=== PATIENT | male | born 1940 | race Caucasian/White ===

== ENCOUNTER 2021-08-28 13:21 | Inpatient (IN) ==
[2021-08-28 14:25] LABS: ABG Base Excess -0.5 MMOL/L (-2.5-2.5); ABG HCO3 23.9 MMOL/L (20-26); ABG Oxygen Saturation 90.8 % (95-100); ABG PCO2 39.4 MM HG (35-48); ABG PH 7.396 (7.35-7.45); ABG PO2 61.9 MM HG (80-95); ABG TCO2 22.6 MMOL/L (23-27)
[2021-08-28 14:45] LABS: Albumin 3.7 G/DL (3.4-5.0); Bilirubin,Total 0.9 MG/DL (0.20-1.00); Calcium 9.1 MG/DL (8.5-10.1); Osmolality,Calculated 283.7 MOS/KG (273-304); Potassium 3.5 MMOL/L (3.5-5.1); Total Protein 7.6 G/DL (6.4-8.2)
[2021-08-28 14:50] LABS: Basophils % 0.7 % (0.0-0.8); Eosinophils # 0.1 10*3/uL (0.0-0.87); Eosinophils % 1.3 % (0.00-10.9); Hematocrit 30.8 VOL% (42.0-52.0); Hemoglobin 8.5 GM/DL (14.0-18.0); Immature Granulocytes Absolute 0.06 #; Lymphocytes # 0.7 10*3/uL (1.4-4.0); Lymphocytes % 12.2 % (21.2-54.2); Mean Corpuscular HGB Conc 27.6 GM/DL (32-36); Mean Corpuscular Volume 73.3 FL (87-102); Mean Platelet Volume 10.6 FL (9.6-12.0); Monocytes % 9.8 % (1.7-12.7); Platelet Count 196 T/CUMM (130-400); Red Cell Distribution Width 18.3 % (9.3-17.3); White Blood Count 6.1 T/CUMM (4-12)
[2021-08-28] MEDS ORDERED: cefTRIAXone 1,000 MG in SODIUM CHLORIDE 0.9% 100 ML IV STA (14:51)
[2021-08-28] MEDS ORDERED: AZITHROMYCIN INJ 500 MG in SODIUM CHLORIDE 0.9% 250 ML IV STA (14:52)
[2021-08-28] MEDS ORDERED: ASPIRIN 325 MG TABLET PO STA (15:00)
[2021-08-28] MEDS ORDERED: ENOXAPARIN 30 MG/0.3 ML SYRINGE SUBCUT STA (15:01)
[2021-08-28 15:14] LABS: Anisocytosis 2+; Hypochromia 1+; Macrocytosis Slight; Microcytosis 2+
[2021-08-28 15:15] LABS: Platelet Estimate Normal; Polychromasia Few
[2021-08-28] MEDS ORDERED: ENOXAPARIN 100 MG/ML SYRINGE SUBCUT ONE (15:17)
[2021-08-28] MEDS ORDERED: GLUCAGON 1 MG VIAL IM PRN (15:37)
[2021-08-28] MEDS ORDERED: ONDANSETRON 4 MG/2 ML VIAL IV PRN (15:37)
[2021-08-28] MEDS ORDERED: ACETAMINOPHEN 325 MG TABLET PO PRN (15:37)
[2021-08-28] MEDS ORDERED: DEXTROSE 10% 250 ML BAG IV PRN (15:37)
[2021-08-28] MEDS ORDERED: NITROGLYCERIN SL 0.4 MG TABLET SL PRN (16:00)
[2021-08-28 16:12] LABS: % Iron Saturation 3.7 % (18-50)
[2021-08-28 16:20] LABS: Folate 11.45 NG/ML (5.38-24.0)
[2021-08-28] MEDS ORDERED: ALUMINUM/MAGNES/SIMETH MAX STR 30 ML UDCUP PO PRN (16:21)
[2021-08-28] MEDS ORDERED: ALBUTEROL/IPRATROPIUM 3 ML NEB RESP TX SCH (16:30)
[2021-08-28] MEDS: ALBUTEROL/IPRATROPIUM 3 ML NEB RESP TX SCH (19:43)
[2021-08-28] MEDS: EZETIMIBE 10 MG TABLET PO SCH (20:33)
[2021-08-28] MEDS: METOPROLOL TARTRATE 50 MG TABLET PO SCH (20:33)
[2021-08-28] MEDS: FENOFIBRATE 145 MG TABLET PO SCH (20:33)
[2021-08-29] MEDS: ALBUTEROL/IPRATROPIUM 3 ML NEB RESP TX SCH ×4 (00:02→19:35)
[2021-08-29 05:44] LABS: Albumin 3.1 G/DL (3.4-5.0); Bilirubin,Total 0.8 MG/DL (0.20-1.00); Osmolality,Calculated 281.7 MOS/KG (273-304); Potassium 3.7 MMOL/L (3.5-5.1); Risk Ratio 5.1; Thyroid Stimulating Hormone 2.22 uIU/ml (0.358-3.74); VLDL Cholesterol 34.8 MG/DL
[2021-08-29 06:49] LABS: Basophils # 0.1 10*3/uL (0.0-0.2); Basophils % 0.9 % (0.0-0.8); Eosinophils # 0.1 10*3/uL (0.0-0.87); Eosinophils % 0.9 % (0.00-10.9); Hematocrit 27.6 VOL% (42.0-52.0); Hemoglobin 7.7 GM/DL (14.0-18.0); Immature Granulocytes % 0.7 %; Immature Granulocytes Absolute 0.04 #; Lymphocytes # 0.7 10*3/uL (1.4-4.0); Lymphocytes % 13.2 % (21.2-54.2); Mean Corpuscular HGB Conc 27.9 GM/DL (32-36); Monocytes % 9.7 % (1.7-12.7); Neutrophils % 74.6 % (38.7-73.9); Platelet Count 174 T/CUMM (130-400); Red Blood Count 3.78 MC/CUMM (3.8-5.5); Red Cell Distribution Width 18.2 % (9.3-17.3); White Blood Count 5.4 T/CUMM (4-12)
[2021-08-29 07:16] LABS: Hypochromia 2+; Microcytosis 1+; Ovalocytes Few; Platelet Estimate Adequate; Polychromasia Slight
[2021-08-29] MEDS ORDERED: ASPIRIN EC 81 MG TABLET PO SCH (09:00)
[2021-08-29] MEDS: METOPROLOL TARTRATE 50 MG TABLET PO SCH ×2 (09:19→20:49)
[2021-08-29] MEDS: CLOPIDOGREL 75 MG TABLET PO SCH (09:19)
[2021-08-29] MEDS: FERROUS SULFATE 325 MG TABLET PO SCH ×2 (09:21→20:49)
[2021-08-29] MEDS ORDERED: SODIUM CHLORIDE 0.45% 1,000 ML IV SCH (09:30)
[2021-08-29 09:55] LABS: Hematocrit 31.7 VOL% (42.0-52.0); Hemoglobin 8.5 GM/DL (14.0-18.0)
[2021-08-29] MEDS ORDERED: LIDOCAINE 1% 20 ML VIAL ONE (09:58)
[2021-08-29] MEDS ORDERED: HEPARIN/NACL 0.9% 2 UNITS/ML 3,000 UNIT/1,500 ML BAG IV ONE (09:58)
[2021-08-29] MEDS ORDERED: fentaNYL 100 MCG/2 ML VIAL ONE (10:24)
[2021-08-29] MEDS ORDERED: HEPARIN 5,000 UNIT/1 ML VIAL ONE ×2 (10:24→11:00)
[2021-08-29] MEDS ORDERED: MIDAZOLAM 2 MG/2 ML VIAL ONE (10:24)
[2021-08-29] MEDS ORDERED: NITROGLYCERIN DRIP 0 MG/0 ML BOTTLE IV ONE (10:24)
[2021-08-29] MEDS ORDERED: FUROSEMIDE 40 MG/4 ML VIAL ONE ×2 (10:51→11:00)
[2021-08-29] MEDS: cefTRIAXone 1,000 MG in SODIUM CHLORIDE 0.9% 100 ML IV SCH (12:15)
[2021-08-29] MEDS: PANTOPRAZOLE 40 MG TABLET PO SCH (12:33)
[2021-08-29] MEDS: ENOXAPARIN 100 MG/ML SYRINGE SUBCUT SCH ×2 (12:33→20:49)
[2021-08-29] MEDS: AZITHROMYCIN INJ 250 MG in SODIUM CHLORIDE 0.9% 250 ML IV SCH (16:23)
[2021-08-29] MEDS: EZETIMIBE 10 MG TABLET PO SCH (20:48)
[2021-08-29] MEDS: ISOSORBIDE MONONITRATE 30 MG TABLET PO SCH (20:49)
[2021-08-29] MEDS: FENOFIBRATE 145 MG TABLET PO SCH (20:49)
[2021-08-30] MEDS: ALBUTEROL/IPRATROPIUM 3 ML NEB RESP TX SCH ×4 (00:06→19:39)
[2021-08-30] MEDS ORDERED: LORazepam 2 MG/1 ML VIAL IV ONE (02:09)
[2021-08-30 06:02] LABS: Calcium 8.2 MG/DL (8.5-10.1); Osmolality,Calculated 287.3 MOS/KG (273-304); Potassium 3.5 MMOL/L (3.5-5.1)
[2021-08-30] MEDS ORDERED: MAGNESIUM SULF RIDER 2 GM/50 ML PREMIX IV ONE (07:45)
[2021-08-30] MEDS ORDERED: ASPIRIN EC 325 MG TABLET PO SCH (09:00)
[2021-08-30 09:15] LABS: ABG Base Excess 2.3 MMOL/L (-2.5-2.5); ABG HCO3 26.4 MMOL/L (20-26); ABG Oxygen Saturation 89.2 % (95-100); ABG PCO2 49.7 MM HG (35-48); ABG PH 7.362 (7.35-7.45); ABG TCO2 26.5 MMOL/L (23-27)
[2021-08-30] MEDS: cefTRIAXone 1,000 MG in SODIUM CHLORIDE 0.9% 100 ML IV SCH (09:27)
[2021-08-30] MEDS: ISOSORBIDE MONONITRATE 30 MG TABLET PO SCH (09:28)
[2021-08-30] MEDS: ASPIRIN EC 81 MG TABLET PO SCH (09:28)
[2021-08-30] MEDS: METOPROLOL TARTRATE 50 MG TABLET PO SCH ×2 (09:28→20:49)
[2021-08-30] MEDS: CLOPIDOGREL 75 MG TABLET PO SCH (09:28)
[2021-08-30] MEDS: ENOXAPARIN 100 MG/ML SYRINGE SUBCUT SCH ×2 (09:28→20:49)
[2021-08-30] MEDS: FERROUS SULFATE 325 MG TABLET PO SCH ×2 (09:29→20:49)
[2021-08-30] MEDS: PANTOPRAZOLE 40 MG TABLET PO SCH (09:29)
[2021-08-30 10:56] LABS: Basophils # 0.1 # (0.0-0.1); Basophils % 0.7 % (0.2-1.0); Eosinophils % 0.3 % (0.0-10.0); Hematocrit 25.8 VOL% (42.0-52.0); Hemoglobin 7.2 GM/DL (14.0-18.0); Lymphocytes # 0.6 # (1.3-2.9); Lymphocytes % 7.6 % (20.5-45.5); Mean Corpuscular HGB Conc 27.9 GM/DL (32-36); Mean Corpuscular Volume 73.1 FL (80-94); Mean Platelet Volume 11.3 FL (7.4-10.4); Monocytes % 10.2 % (5.5-11.7); Neutrophils % 80.9 % (43.0-65.0); Platelet Count 176 T/CUMM (130-400); Red Blood Count 3.53 MC/CUMM (4.70-6.10); Red Cell Distribution Width 18.2 % (11.5-15.5); White Blood Count 7.3 T/CUMM (4.8-10.8)
[2021-08-30] MEDS: FUROSEMIDE 40 MG/4 ML VIAL IV SCH ×2 (12:03→16:18)
[2021-08-30] MEDS: AZITHROMYCIN INJ 250 MG in SODIUM CHLORIDE 0.9% 250 ML IV SCH (12:42)
[2021-08-30 16:48] LABS: Bacteria,Urine Occasional /HPF (Few); Bilirubin,Urine Negative (Negative); Blood, Urine Large mg/dL (Negative); Calcium Oxalate Crystals,Urine Occasional /HPF (Few); Glucose,Urine (UA) Negative (Negative); Ketones,Urine Negative (Negative); Mucus,Urine Occasional /LPF (Occasional); Nitrite,Urine Negative (Negative); Protein,Urine 100 MG/DL; RBC,Urine 66 /HPF (0-4); Uric Acid Crystals,Urine Occasional /HPF (<1); Urine Appearance CLOUDY (Clear); Urine Color Yellow (Yellow); Urine Specific Gravity 1.025 (1.001-1.035); Urine Urobilinogen < 2.0 EU/DL (<2.0)
[2021-08-30] MEDS: EZETIMIBE 10 MG TABLET PO SCH (20:49)
[2021-08-30] MEDS: FENOFIBRATE 145 MG TABLET PO SCH (20:49)
[2021-08-31] MEDS: ALBUTEROL/IPRATROPIUM 3 ML NEB RESP TX SCH ×4 (00:10→19:28)
[2021-08-31 06:00] LABS: Potassium 3.9 MMOL/L (3.5-5.1)
[2021-08-31 07:30] LABS: Basophils # 0.1 10*3/uL (0.0-0.2); Basophils % 0.8 % (0.0-0.8); Eosinophils # 0.1 10*3/uL (0.0-0.87); Eosinophils % 0.8 % (0.00-10.9); Hemoglobin 8.4 GM/DL (14.0-18.0); Immature Granulocytes % 0.7 %; Immature Granulocytes Absolute 0.06 #; Lymphocytes # 0.9 10*3/uL (1.4-4.0); Lymphocytes % 10.1 % (21.2-54.2); Mean Corpuscular HGB Conc 26.9 GM/DL (32-36); Mean Platelet Volume 11.1 FL (9.6-12.0); Monocytes % 7.5 % (1.7-12.7); NRBC # 0.02 10*3/uL; Neutrophils % 80.1 % (38.7-73.9); Platelet Count 180 T/CUMM (130-400); Red Blood Count 4.16 MC/CUMM (3.8-5.5); Red Cell Distribution Width 18.5 % (9.3-17.3); White Blood Count 8.8 T/CUMM (4-12)
[2021-08-31 07:31] LABS: Hematocrit 31.2 VOL% (42.0-52.0)
[2021-08-31 07:32] LABS: Anisocytosis 1+; Hypochromia 1+; Microcytosis 1+; Ovalocytes Slight; Platelet Estimate Adequate; Tear Drop Cells Slight
[2021-08-31] MEDS: FERROUS SULFATE 325 MG TABLET PO SCH ×3 (08:38→21:38)
[2021-08-31] MEDS: ISOSORBIDE MONONITRATE 30 MG TABLET PO SCH (08:38)
[2021-08-31] MEDS: ASPIRIN EC 81 MG TABLET PO SCH (08:38)
[2021-08-31] MEDS: METOPROLOL TARTRATE 50 MG TABLET PO SCH ×3 (08:38→21:37)
[2021-08-31] MEDS: cefTRIAXone 1,000 MG in SODIUM CHLORIDE 0.9% 100 ML IV SCH (08:38)
[2021-08-31] MEDS: CLOPIDOGREL 75 MG TABLET PO SCH (08:38)
[2021-08-31] MEDS: PANTOPRAZOLE 40 MG TABLET PO SCH (08:38)
[2021-08-31] MEDS: FUROSEMIDE 40 MG/4 ML VIAL IV SCH ×2 (08:39→16:43)
[2021-08-31] MEDS: ENOXAPARIN 100 MG/ML SYRINGE SUBCUT SCH ×2 (09:11→21:06)
[2021-08-31] MEDS: AZITHROMYCIN INJ 250 MG in SODIUM CHLORIDE 0.9% 250 ML IV SCH (09:11)
[2021-08-31] MEDS: QUEtiapine 25 MG TABLET PO SCH (18:11)
[2021-08-31] MEDS ORDERED: HALOPERIDOL 5 MG/ML AMP IM ONE (20:56)
[2021-08-31] MEDS: FENOFIBRATE 145 MG TABLET PO SCH ×2 (21:06→21:37)
[2021-08-31] MEDS: EZETIMIBE 10 MG TABLET PO SCH ×2 (21:06→21:37)
[2021-09-01] MEDS: ALBUTEROL/IPRATROPIUM 3 ML NEB RESP TX SCH ×4 (00:44→19:01)
[2021-09-01 06:05] LABS: White Blood Count 7.6 T/CUMM (4-12)
[2021-09-01 06:06] LABS: Basophils # 0.1 10*3/uL (0.0-0.2); Basophils % 0.7 % (0.0-0.8); Eosinophils % 0.5 % (0.00-10.9); Hemoglobin 8.2 GM/DL (14.0-18.0); Immature Granulocytes % 0.8 %; Immature Granulocytes Absolute 0.06 #; Lymphocytes # 0.8 10*3/uL (1.4-4.0); Lymphocytes % 10.6 % (21.2-54.2); Mean Corpuscular HGB Conc 27.3 GM/DL (32-36); Mean Corpuscular Volume 74.1 FL (87-102); Mean Platelet Volume 11.3 FL (9.6-12.0); Monocytes % 7.9 % (1.7-12.7); NRBC # 0.02 10*3/uL; Neutrophils % 79.5 % (38.7-73.9); Platelet Count 207 T/CUMM (130-400); Red Blood Count 4.05 MC/CUMM (3.8-5.5); Red Cell Distribution Width 18.6 % (9.3-17.3)
[2021-09-01 06:51] LABS: Osmolality,Calculated 286.4 MOS/KG (273-304)
[2021-09-01] MEDS ORDERED: diphenhydrAMINE CAP 25 MG CAPSULE PO ONE (07:00)
[2021-09-01] MEDS ORDERED: DIAZEPAM 5 MG TABLET PO ONE (07:00)
[2021-09-01] MEDS ORDERED: POTASSIUM CHLORIDE 20 MEQ TABLET PO ONE (09:26)
[2021-09-01] MEDS ORDERED: ENOXAPARIN 40 MG/0.4 ML SYRINGE SUBCUT SCH (09:26)
[2021-09-01] MEDS: ISOSORBIDE MONONITRATE 30 MG TABLET PO SCH (09:53)
[2021-09-01] MEDS: FERROUS SULFATE 325 MG TABLET PO SCH ×2 (09:53→21:08)
[2021-09-01] MEDS: ASPIRIN EC 81 MG TABLET PO SCH (09:54)
[2021-09-01] MEDS: CLOPIDOGREL 75 MG TABLET PO SCH (09:54)
[2021-09-01] MEDS: PANTOPRAZOLE 40 MG TABLET PO SCH (09:54)
[2021-09-01] MEDS: QUEtiapine 25 MG TABLET PO SCH (09:54)
[2021-09-01] MEDS: METOPROLOL TARTRATE 50 MG TABLET PO SCH ×2 (09:55→21:08)
[2021-09-01] MEDS: cefTRIAXone 1,000 MG in SODIUM CHLORIDE 0.9% 100 ML IV SCH (09:55)
[2021-09-01] MEDS ORDERED: FUROSEMIDE 40 MG/4 ML VIAL IV SCH (10:00)
[2021-09-01] MEDS: AZITHROMYCIN INJ 250 MG in SODIUM CHLORIDE 0.9% 250 ML IV SCH (10:50)
[2021-09-01] MEDS: FUROSEMIDE 40 MG/4 ML VIAL IV SCH ×3 (10:55→19:53)
[2021-09-01] MEDS: ENOXAPARIN 40 MG/0.4 ML SYRINGE SUBCUT SCH (10:55)
[2021-09-01] MEDS: ENOXAPARIN 100 MG/ML SYRINGE SUBCUT SCH (11:07)
[2021-09-01] MEDS ORDERED: POTASSIUM CHLORIDE 20 MEQ TABLET PO PRN (14:45)
[2021-09-01] MEDS: HALOPERIDOL 5 MG TABLET PO SCH (19:53)
[2021-09-01] MEDS: EZETIMIBE 10 MG TABLET PO SCH (21:08)
[2021-09-01] MEDS: MEMANTINE 5 MG TABLET PO SCH (21:08)
[2021-09-01] MEDS: FENOFIBRATE 145 MG TABLET PO SCH (21:11)
[2021-09-02] MEDS: ALBUTEROL/IPRATROPIUM 3 ML NEB RESP TX SCH ×4 (01:39→20:30)
[2021-09-02 05:21] LABS: Calcium 8.6 MG/DL (8.5-10.1); Osmolality,Calculated 280.8 MOS/KG (273-304); Potassium 3.9 MMOL/L (3.5-5.1)
[2021-09-02 05:59] LABS: Basophils # 0.1 10*3/uL (0.0-0.2); Eosinophils # 0.1 10*3/uL (0.0-0.87); Eosinophils % 1.8 % (0.00-10.9); Hemoglobin 8.2 GM/DL (14.0-18.0); Immature Granulocytes % 0.7 %; Immature Granulocytes Absolute 0.05 #; Lymphocytes # 0.8 10*3/uL (1.4-4.0); Lymphocytes % 11.7 % (21.2-54.2); Mean Corpuscular HGB Conc 27.2 GM/DL (32-36); Mean Corpuscular Volume 74.9 FL (87-102); Mean Platelet Volume 11.8 FL (9.6-12.0); Monocytes % 7.3 % (1.7-12.7); Neutrophils % 77.5 % (38.7-73.9); Platelet Count 207 T/CUMM (130-400); Red Blood Count 4.02 MC/CUMM (3.8-5.5); Red Cell Distribution Width 18.7 % (9.3-17.3); White Blood Count 6.7 T/CUMM (4-12)
[2021-09-02 06:07] LABS: Hematocrit 30.1 VOL% (42.0-52.0)
[2021-09-02 06:49] LABS: Anisocytosis 1+; Hypochromia 1+; Microcytosis 1+; Ovalocytes Slight; Target Cells Slight
[2021-09-02 06:50] LABS: Platelet Estimate Normal
[2021-09-02] MEDS: FUROSEMIDE 40 MG/4 ML VIAL IV SCH ×2 (09:08→16:39)
[2021-09-02] MEDS: ASPIRIN EC 81 MG TABLET PO SCH (09:09)
[2021-09-02] MEDS: FERROUS SULFATE 325 MG TABLET PO SCH ×2 (09:09→20:41)
[2021-09-02] MEDS: HALOPERIDOL 5 MG TABLET PO SCH ×2 (09:09→18:44)
[2021-09-02] MEDS: METOPROLOL TARTRATE 50 MG TABLET PO SCH ×2 (09:09→20:41)
[2021-09-02] MEDS: PANTOPRAZOLE 40 MG TABLET PO SCH (09:09)
[2021-09-02] MEDS: ISOSORBIDE MONONITRATE 30 MG TABLET PO SCH (09:09)
[2021-09-02] MEDS: MEMANTINE 5 MG TABLET PO SCH ×2 (09:09→20:41)
[2021-09-02] MEDS: CLOPIDOGREL 75 MG TABLET PO SCH (09:09)
[2021-09-02] MEDS: cefTRIAXone 1,000 MG in SODIUM CHLORIDE 0.9% 100 ML IV SCH (09:10)
[2021-09-02] MEDS: ENOXAPARIN 40 MG/0.4 ML SYRINGE SUBCUT SCH (09:11)
[2021-09-02] MEDS: AZITHROMYCIN INJ 250 MG in SODIUM CHLORIDE 0.9% 250 ML IV SCH (10:14)
[2021-09-02] MEDS ORDERED: TUBERCULIN SKIN TEST 0.1 ML SYRINGE INTRADERM ONE (14:00)
[2021-09-02] MEDS ORDERED: HALOPERIDOL 5 MG TABLET PO SCH (18:00)
[2021-09-02] MEDS: EZETIMIBE 10 MG TABLET PO SCH (20:41)
[2021-09-02] MEDS: DOXYCYCLINE HYCLATE 100 MG CAPSULE PO SCH (20:41)
[2021-09-02] MEDS: FENOFIBRATE 145 MG TABLET PO SCH (20:41)
[2021-09-03] MEDS: ALBUTEROL/IPRATROPIUM 3 ML NEB RESP TX SCH ×4 (00:58→19:39)
[2021-09-03 05:56] LABS: Calcium 8.6 MG/DL (8.5-10.1); Potassium 3.4 MMOL/L (3.5-5.1)
[2021-09-03 06:09] LABS: Basophils # 0.1 10*3/uL (0.0-0.2); Eosinophils # 0.2 10*3/uL (0.0-0.87); Eosinophils % 3.1 % (0.00-10.9); Hemoglobin 8.5 GM/DL (14.0-18.0); Immature Granulocytes % 0.9 %; Immature Granulocytes Absolute 0.05 #; Lymphocytes # 0.8 10*3/uL (1.4-4.0); Lymphocytes % 13.8 % (21.2-54.2); Mean Corpuscular Volume 74.3 FL (87-102); Mean Platelet Volume 11.2 FL (9.6-12.0); Monocytes % 9.4 % (1.7-12.7); NRBC # 0.02 10*3/uL; Neutrophils % 71.8 % (38.7-73.9); Platelet Count 210 T/CUMM (130-400); Red Blood Count 4.09 MC/CUMM (3.8-5.5); Red Cell Distribution Width 18.9 % (9.3-17.3); White Blood Count 5.9 T/CUMM (4-12)
[2021-09-03 06:10] LABS: Hematocrit 30.4 VOL% (42.0-52.0)
[2021-09-03] MEDS ORDERED: DIAZEPAM 5 MG TABLET PO ONE (06:57)
[2021-09-03] MEDS ORDERED: diphenhydrAMINE CAP 25 MG CAPSULE PO ONE (06:57)
[2021-09-03] MEDS: DOXYCYCLINE HYCLATE 100 MG CAPSULE PO SCH ×2 (09:32→21:06)
[2021-09-03] MEDS: ASPIRIN EC 81 MG TABLET PO SCH (09:32)
[2021-09-03] MEDS: FUROSEMIDE 40 MG/4 ML VIAL IV SCH ×2 (09:32→16:51)
[2021-09-03] MEDS: CLOPIDOGREL 75 MG TABLET PO SCH (09:32)
[2021-09-03] MEDS: cefTRIAXone 1,000 MG in SODIUM CHLORIDE 0.9% 100 ML IV SCH (09:33)
[2021-09-03] MEDS: PANTOPRAZOLE 40 MG TABLET PO SCH (09:33)
[2021-09-03] MEDS: ISOSORBIDE MONONITRATE 30 MG TABLET PO SCH (09:33)
[2021-09-03] MEDS: FERROUS SULFATE 325 MG TABLET PO SCH ×2 (09:33→21:06)
[2021-09-03] MEDS: MEMANTINE 5 MG TABLET PO SCH ×2 (09:33→21:07)
[2021-09-03] MEDS: METOPROLOL TARTRATE 50 MG TABLET PO SCH ×2 (09:33→21:07)
[2021-09-03] MEDS: ENOXAPARIN 40 MG/0.4 ML SYRINGE SUBCUT SCH (09:35)
[2021-09-03] MEDS ORDERED: POTASSIUM CHLORIDE 20 MEQ TABLET PO ONE (09:40)
[2021-09-03] MEDS: AZITHROMYCIN INJ 500 MG in SODIUM CHLORIDE 0.9% 250 ML IV SCH (10:25)
[2021-09-03] MEDS: HALOPERIDOL 5 MG TABLET PO SCH (18:22)
[2021-09-03] MEDS: EZETIMIBE 10 MG TABLET PO SCH (21:06)
[2021-09-03] MEDS: FENOFIBRATE 145 MG TABLET PO SCH (21:06)
[2021-09-04] MEDS: ALBUTEROL/IPRATROPIUM 3 ML NEB RESP TX SCH ×4 (00:51→19:40)
[2021-09-04 06:09] LABS: Calcium 8.6 MG/DL (8.5-10.1); Osmolality,Calculated 286.5 MOS/KG (273-304); Potassium 3.5 MMOL/L (3.5-5.1)
[2021-09-04 06:24] LABS: Basophils # 0.1 10*3/uL (0.0-0.2); Basophils % 0.9 % (0.0-0.8); Eosinophils # 0.2 10*3/uL (0.0-0.87); Eosinophils % 3.2 % (0.00-10.9); Hematocrit 30.7 VOL% (42.0-52.0); Immature Granulocytes % 0.9 %; Immature Granulocytes Absolute 0.06 #; Lymphocytes % 15.6 % (21.2-54.2); Mean Corpuscular HGB Conc 27.4 GM/DL (32-36); Mean Corpuscular Volume 75.1 FL (87-102); Monocytes % 9.6 % (1.7-12.7); Neutrophils % 69.8 % (38.7-73.9); Platelet Count 208 T/CUMM (130-400); Red Blood Count 4.09 MC/CUMM (3.8-5.5); Red Cell Distribution Width 19.1 % (9.3-17.3); White Blood Count 6.3 T/CUMM (4-12)
[2021-09-04 06:25] LABS: Hemoglobin 8.4 GM/DL (14.0-18.0)
[2021-09-04] MEDS: FUROSEMIDE 40 MG/4 ML VIAL IV SCH ×2 (08:22→18:05)
[2021-09-04] MEDS: PANTOPRAZOLE 40 MG TABLET PO SCH (08:23)
[2021-09-04] MEDS: cefTRIAXone 1,000 MG in SODIUM CHLORIDE 0.9% 100 ML IV SCH (08:23)
[2021-09-04] MEDS: DOXYCYCLINE HYCLATE 100 MG CAPSULE PO SCH ×2 (08:23→20:30)
[2021-09-04] MEDS: FERROUS SULFATE 325 MG TABLET PO SCH ×2 (08:23→20:30)
[2021-09-04] MEDS: ASPIRIN EC 81 MG TABLET PO SCH (08:23)
[2021-09-04] MEDS: ISOSORBIDE MONONITRATE 30 MG TABLET PO SCH (08:23)
[2021-09-04] MEDS: CLOPIDOGREL 75 MG TABLET PO SCH (08:24)
[2021-09-04] MEDS: METOPROLOL TARTRATE 50 MG TABLET PO SCH ×2 (08:24→20:30)
[2021-09-04] MEDS: MEMANTINE 5 MG TABLET PO SCH ×2 (08:24→20:30)
[2021-09-04] MEDS: ENOXAPARIN 40 MG/0.4 ML SYRINGE SUBCUT SCH (08:32)
[2021-09-04] MEDS: AZITHROMYCIN INJ 500 MG in SODIUM CHLORIDE 0.9% 250 ML IV SCH (12:18)
[2021-09-04] MEDS: HALOPERIDOL 5 MG TABLET PO SCH (18:27)
[2021-09-04] MEDS: FENOFIBRATE 145 MG TABLET PO SCH (20:30)
[2021-09-04] MEDS: EZETIMIBE 10 MG TABLET PO SCH (20:30)
[2021-09-05] MEDS: ALBUTEROL/IPRATROPIUM 3 ML NEB RESP TX SCH ×4 (00:46→19:55)
[2021-09-05 06:52] LABS: Calcium 8.7 MG/DL (8.5-10.1); Osmolality,Calculated 283.7 MOS/KG (273-304); Potassium 3.5 MMOL/L (3.5-5.1)
[2021-09-05 07:09] LABS: Basophils # 0.1 10*3/uL (0.0-0.2); Basophils % 1.3 % (0.0-0.8); Eosinophils # 0.2 10*3/uL (0.0-0.87); Eosinophils % 3.6 % (0.00-10.9); Hematocrit 31.6 VOL% (42.0-52.0); Hemoglobin 8.7 GM/DL (14.0-18.0); Immature Granulocytes % 0.9 %; Immature Granulocytes Absolute 0.05 #; Lymphocytes # 0.9 10*3/uL (1.4-4.0); Lymphocytes % 16.1 % (21.2-54.2); Mean Corpuscular HGB Conc 27.5 GM/DL (32-36); Mean Corpuscular Volume 75.6 FL (87-102); Mean Platelet Volume 11.1 FL (9.6-12.0); Monocytes % 8.9 % (1.7-12.7); Neutrophils % 69.2 % (38.7-73.9); Platelet Count 205 T/CUMM (130-400); Red Blood Count 4.18 MC/CUMM (3.8-5.5); Red Cell Distribution Width 19.2 % (9.3-17.3); White Blood Count 5.5 T/CUMM (4-12)
[2021-09-05 07:56] LABS: Anisocytosis 2+
[2021-09-05 07:57] LABS: Hypochromia 3+; Microcytosis 3+; Ovalocytes Few; Polychromasia 1+
[2021-09-05 07:58] LABS: Elliptocytes Few; Spherocytes Few; Stomatocytes 1+
[2021-09-05 07:59] LABS: Platelet Estimate Normal; Tear Drop Cells Few
[2021-09-05] MEDS: CLOPIDOGREL 75 MG TABLET PO SCH (09:59)
[2021-09-05] MEDS: FERROUS SULFATE 325 MG TABLET PO SCH ×2 (09:59→21:11)
[2021-09-05] MEDS: MEMANTINE 5 MG TABLET PO SCH ×2 (10:00→21:11)
[2021-09-05] MEDS: ASPIRIN EC 81 MG TABLET PO SCH (10:00)
[2021-09-05] MEDS: DOXYCYCLINE HYCLATE 100 MG CAPSULE PO SCH ×2 (10:00→21:11)
[2021-09-05] MEDS: METOPROLOL TARTRATE 50 MG TABLET PO SCH ×2 (10:00→21:11)
[2021-09-05] MEDS: ISOSORBIDE MONONITRATE 30 MG TABLET PO SCH (10:01)
[2021-09-05] MEDS: PANTOPRAZOLE 40 MG TABLET PO SCH (10:01)
[2021-09-05] MEDS: ENOXAPARIN 40 MG/0.4 ML SYRINGE SUBCUT SCH (10:03)
[2021-09-05] MEDS: cefTRIAXone 1,000 MG in SODIUM CHLORIDE 0.9% 100 ML IV SCH (10:07)
[2021-09-05] MEDS: FUROSEMIDE 40 MG/4 ML VIAL IV SCH (10:08)
[2021-09-05] MEDS ORDERED: TAMSULOSIN 0.4 MG CAPSULE PO ONE (12:15)
[2021-09-05] MEDS: AZITHROMYCIN INJ 500 MG in SODIUM CHLORIDE 0.9% 250 ML IV SCH (12:25)
[2021-09-05] MEDS: HALOPERIDOL 5 MG TABLET PO SCH (18:25)
[2021-09-05] MEDS: EZETIMIBE 10 MG TABLET PO SCH (21:11)
[2021-09-05] MEDS: FENOFIBRATE 145 MG TABLET PO SCH (21:11)
[2021-09-06] MEDS: ALBUTEROL/IPRATROPIUM 3 ML NEB RESP TX SCH ×4 (00:38→20:42)
[2021-09-06 05:48] LABS: Calcium 8.8 MG/DL (8.5-10.1); Osmolality,Calculated 284.5 MOS/KG (273-304)
[2021-09-06 06:22] LABS: Basophils # 0.1 10*3/uL (0.0-0.2); Basophils % 1.1 % (0.0-0.8); Eosinophils # 0.2 10*3/uL (0.0-0.87); Eosinophils % 4.5 % (0.00-10.9); Hematocrit 33.1 VOL% (42.0-52.0); Immature Granulocytes % 0.8 %; Immature Granulocytes Absolute 0.04 #; Lymphocytes % 18.1 % (21.2-54.2); Mean Corpuscular HGB Conc 27.2 GM/DL (32-36); Mean Corpuscular Volume 75.9 FL (87-102); Mean Platelet Volume 10.6 FL (9.6-12.0); Monocytes % 8.5 % (1.7-12.7); Platelet Count 220 T/CUMM (130-400); Red Blood Count 4.36 MC/CUMM (3.8-5.5); Red Cell Distribution Width 19.2 % (9.3-17.3); White Blood Count 5.3 T/CUMM (4-12)
[2021-09-06] MEDS: CLOPIDOGREL 75 MG TABLET PO SCH (09:30)
[2021-09-06] MEDS: ISOSORBIDE MONONITRATE 30 MG TABLET PO SCH (09:30)
[2021-09-06] MEDS: ASPIRIN EC 81 MG TABLET PO SCH (09:30)
[2021-09-06] MEDS: DOXYCYCLINE HYCLATE 100 MG CAPSULE PO SCH ×2 (09:30→21:41)
[2021-09-06] MEDS: PANTOPRAZOLE 40 MG TABLET PO SCH (09:30)
[2021-09-06] MEDS: MEMANTINE 5 MG TABLET PO SCH ×2 (09:30→21:20)
[2021-09-06] MEDS: METOPROLOL TARTRATE 50 MG TABLET PO SCH ×2 (09:30→21:20)
[2021-09-06] MEDS: FERROUS SULFATE 325 MG TABLET PO SCH ×2 (09:31→21:20)
[2021-09-06] MEDS: ENOXAPARIN 40 MG/0.4 ML SYRINGE SUBCUT SCH (09:32)
[2021-09-06] MEDS: HALOPERIDOL 5 MG TABLET PO SCH (18:19)
[2021-09-06] MEDS: EZETIMIBE 10 MG TABLET PO SCH (21:19)
[2021-09-06] MEDS: FENOFIBRATE 145 MG TABLET PO SCH (21:19)
[2021-09-07] MEDS: ALBUTEROL/IPRATROPIUM 3 ML NEB RESP TX SCH (01:03)
[2021-09-07 05:52] LABS: Calcium 9.5 MG/DL (8.5-10.1); Osmolality,Calculated 285.8 MOS/KG (273-304); Potassium 3.9 MMOL/L (3.5-5.1)
[2021-09-07 06:04] LABS: Basophils # 0.1 10*3/uL (0.0-0.2); Basophils % 1.5 % (0.0-0.8); Eosinophils # 0.2 10*3/uL (0.0-0.87); Eosinophils % 4.1 % (0.00-10.9); Hemoglobin 9.1 GM/DL (14.0-18.0); Immature Granulocytes % 0.9 %; Immature Granulocytes Absolute 0.05 #; Lymphocytes % 18.5 % (21.2-54.2); Mean Corpuscular HGB Conc 27.1 GM/DL (32-36); Mean Corpuscular Volume 76.2 FL (87-102); Mean Platelet Volume 11.2 FL (9.6-12.0); Monocytes % 8.4 % (1.7-12.7); Neutrophils % 66.6 % (38.7-73.9); Platelet Count 221 T/CUMM (130-400); Red Blood Count 4.41 MC/CUMM (3.8-5.5); Red Cell Distribution Width 19.7 % (9.3-17.3); White Blood Count 5.4 T/CUMM (4-12)
[2021-09-07 06:07] LABS: Hematocrit 33.6 VOL% (42.0-52.0)
[2021-09-07 06:33] LABS: Anisocytosis 1+; Hypochromia 2+; Microcytosis 1+; Ovalocytes Slight; Platelet Estimate Normal; Polychromasia Slight; Target Cells Slight
[2021-09-07 09:24] VITALS: BP 142/68
[2021-09-07] MEDS: ISOSORBIDE MONONITRATE 30 MG TABLET PO SCH (09:45)
[2021-09-07] MEDS: ASPIRIN EC 81 MG TABLET PO SCH (09:45)
[2021-09-07] MEDS: METOPROLOL TARTRATE 50 MG TABLET PO SCH (09:45)
[2021-09-07] MEDS: MEMANTINE 5 MG TABLET PO SCH (09:45)
[2021-09-07] MEDS: PANTOPRAZOLE 40 MG TABLET PO SCH (09:45)
[2021-09-07] MEDS: CLOPIDOGREL 75 MG TABLET PO SCH (09:45)
[2021-09-07] MEDS: FERROUS SULFATE 325 MG TABLET PO SCH (09:45)
[2021-09-07] MEDS: ENOXAPARIN 40 MG/0.4 ML SYRINGE SUBCUT SCH (09:45)
[2021-09-07] MEDS: DOXYCYCLINE HYCLATE 100 MG CAPSULE PO SCH (10:01)
== END 2021-09-07 10:41 | DRG 280 ==
LOC: N.ED 13:21 → N.TELEN 15:37 → SUATTDRO 15:37 → N.TELEN 19:06
PROVIDERS: ADMIT Internal Medicine; ATTEND Internal Medicine